=== PATIENT | female | born 1980 | race Caucasian/White ===

== ENCOUNTER 2016-06-15 10:15 | Inpatient (IN) | payer BC ==
[~2016-06-15] VITALS: Ht 160 cm; Wt 75.9 kg
[2016-06-15] VITALS (16 sets, daily range): BP systolic 98–125; BP diastolic 49–89; PULSE 85–109; TEMP 97.6–98.2
[~2016-06-15 10:15] MED LIST: COLACE100 MG PO; PRENATAL VITAMI1 TA5 PO
[2016-06-15] MEDS ORDERED: TYLENOL 500MG500 MG PO (10:50)
[2016-06-15 11:14] LABS: HEMATOCRIT 42.5 % (37.0-47.0); HEMOGLOBIN 14.4 g/dl (12.5-16.0); MEAN CELL VOLUME 90 fl (80.0-100.0); MEAN CORPUSCULAR HEMOGLOBIN 30 pg (27.0-31.0); MEAN CORPUSCULAR HGB CONC 34 g/dl (33.0-37.0); MEAN PLATELET VOLUME 13.1 fl (7.4-10.4); PLATELET COUNT 131 K/mm3 (130-400); RED BLOOD COUNT 4.75 M/mm3 (4.10-5.30); REDCELL DISTRIBUTION WIDTH-CV 13.8 % (11.5-14.5); WHITE BLOOD COUNT 16.1 K/mm3 (4.8-10.8)
[2016-06-15 11:21] LABS: ADD PATHOLOGY DIFF REVIEW NO
[2016-06-15 11:30] LABS: ADJUSTED CALCIUM 9.8 mg/dL (8.4-10.2); ALBUMIN 3.6 gm/dL (3.5-5.0); BILIRUBIN,TOTAL 0.5 mg/dL (0.0-1.0); CALCIUM 9.5 mg/dL (8.4-10.2); CREATININE, serum 0.86 mg/dL (0.52-1.25); POTASSIUM 4.4 mmol/L (3.4-5.0); TOTAL PROTEIN 6.6 gm/dL (6.4-8.2)
[2016-06-15 12:32] LABS: BAND 18 % (0-10); NEUTROPHILS 55 % (42.0-75.2); TOTAL CELLS COUNTED 100
[2016-06-15 12:33] LABS: PLATELET ESTIMATE NORMAL (NORMAL)
[2016-06-16 04:00] VITALS: BP 126/74; PULSE 82; TEMP 97.9
[2016-06-16 07:24] LABS: HEMOGLOBIN 13.8 g/dl (12.5-16.0); MEAN CELL VOLUME 92 fl (80.0-100.0); MEAN CORPUSCULAR HEMOGLOBIN 30 pg (27.0-31.0); MEAN CORPUSCULAR HGB CONC 33 g/dl (33.0-37.0); MEAN PLATELET VOLUME 12.9 fl (7.4-10.4); PLATELET COUNT 82 K/mm3 (130-400); RED BLOOD COUNT 4.59 M/mm3 (4.10-5.30); REDCELL DISTRIBUTION WIDTH-CV 13.9 % (11.5-14.5); WHITE BLOOD COUNT 17.1 K/mm3 (4.8-10.8)
[2016-06-16 07:38] VITALS: BP 144/90; PULSE 94; TEMP 98
[2016-06-16 07:42] LABS: ADJUSTED CALCIUM 9.8 mg/dL (8.4-10.2); BILIRUBIN,TOTAL 0.4 mg/dL (0.0-1.0); CREATININE, serum 0.99 mg/dL (0.52-1.25); POTASSIUM 4.3 mmol/L (3.4-5.0); TOTAL PROTEIN 5.9 gm/dL (6.4-8.2)
[2016-06-16 07:43] LABS: ADD PATHOLOGY DIFF REVIEW NO
[2016-06-16 08:14] LABS: BAND 5 % (0-10); NEUTROPHILS 71 % (42.0-75.2); TOTAL CELLS COUNTED 100
[2016-06-16 08:15] LABS: OVALOCYTES 1+
[2016-06-16 11:00] VITALS: BP 128/71; PULSE 92
[2016-06-16 14:59] VITALS: BP 140/83; PULSE 96; TEMP 97.4
[2016-06-16 20:00] VITALS: BP 133/75; PULSE 83; TEMP 98.2
[2016-06-17 08:02] LABS: HEMATOCRIT 37.3 % (37.0-47.0); HEMOGLOBIN 12.3 g/dl (12.5-16.0); MEAN CELL VOLUME 93 fl (80.0-100.0); MEAN CORPUSCULAR HEMOGLOBIN 31 pg (27.0-31.0); MEAN CORPUSCULAR HGB CONC 33 g/dl (33.0-37.0); MEAN PLATELET VOLUME 12.4 fl (7.4-10.4); PLATELET COUNT 82 K/mm3 (130-400); RED BLOOD COUNT 4.03 M/mm3 (4.10-5.30); REDCELL DISTRIBUTION WIDTH-CV 14.2 % (11.5-14.5); WHITE BLOOD COUNT 13.2 K/mm3 (4.8-10.8)
[2016-06-17 08:11] LABS: ADJUSTED CALCIUM 9.6 mg/dL (8.4-10.2); ALBUMIN 2.7 gm/dL (3.5-5.0); BILIRUBIN,TOTAL 0.3 mg/dL (0.0-1.0); CALCIUM 8.6 mg/dL (8.4-10.2); CREATININE, serum 0.83 mg/dL (0.52-1.25); TOTAL PROTEIN 5.5 gm/dL (6.4-8.2)
[2016-06-17 08:45] VITALS: BP 137/82; PULSE 81; TEMP 97.6
[2016-06-17 16:35] VITALS: BP 131/84; PULSE 83; TEMP 97.7
[2016-06-17 21:00] VITALS: BP 142/85; PULSE 88; TEMP 98.6
[2016-06-18 04:00] VITALS: BP 137/79; PULSE 91; TEMP 97.8
[2016-06-18 07:50] VITALS: BP 139/87; PULSE 92; TEMP 97.5
[2016-06-18] MEDS ORDERED: MOTRIN 800800 MG/TAB PO (09:18)
[2016-06-18] MEDS ORDERED: PROCARDIA XL 3030 MG PO (09:18)
[2016-06-18] MEDS ORDERED: PERCOCET 325 MG1 TA2 PO (09:19)
== END 2016-06-18 10:30 | disposition home or self-care (01) | DRG 766 ==
LOC: OB 10:15 → LDR 11:20 → OB 12:46 → EDSTATUS 06-26 11:15 → LDRO 06-26 12:00
PROVIDERS: Obstetrics & Gynecology; Student in an Organized Health Care Education/Training Program
PROC: 10D00Z1 Extraction of Products of Conception, Low, Open Approach (ICD-10-PCS; principal; 2016-06-15)
DX: O34.211 Maternal care for low transverse scar from previous cesarean delivery (principal); N85.8 Other specified noninflammatory disorders of uterus; O99.824 Streptococcus B carrier state complicating childbirth; O32.1XX0 Maternal care for breech presentation, not applicable or unspecified; O14.24 HELLP syndrome, complicating childbirth; O09.523 Supervision of elderly multigravida, third trimester; Z37.0 Single live birth; Z3A.38 38 weeks gestation of pregnancy
CPT/HCPCS: J1580; J1885; J2175; J2370; J2405; J2590; J3010; J7120

== ENCOUNTER → 2019-10-14 | Outpatient (CLI) | payer BC ==
[~2019-10-14] MED LIST changes: +MOTRIN 800800 MG/TAB PO; +PERCOCET 325 MG1 TA2 PO; +PROCARDIA XL 3030 MG PO; +TYLENOL 500MG500 MG PO
== END ==
LOC: MC.RAD 13:30
DX: Z12.31 Encounter for screening mammogram for malignant neoplasm of breast (principal)

== ENCOUNTER → 2021-04-19 | Outpatient (CLI) | payer BC | LOC: MC.RAD 03-01 11:15 | DX: Z12.31 Encounter for screening mammogram for malignant neoplasm of breast (principal) ==

== ENCOUNTER → 2022-04-25 | Outpatient (CLI) | payer BC | LOC: MC.RAD 12:52 | DX: Z12.31 Encounter for screening mammogram for malignant neoplasm of breast (principal) ==

== ENCOUNTER → 2023-04-27 | Outpatient (CLI) | payer BC | LOC: MC.RAD 08:15 | DX: Z12.31 Encounter for screening mammogram for malignant neoplasm of breast (principal) ==